=== PATIENT | female | born 1975 | race Caucasian/White ===

== ENCOUNTER 2016-07-03 03:05 | Observation (INO) | payer MEDICARE, MEDICAID ==
[~2016-07-03] VITALS: Ht 162.6 cm; Wt 82.8 kg
[~2016-07-03 03:05] MED LIST: AMBIEN10 MG PO; NEURONTIN 300300 MG PO; PROZAC20 MG PO; ZITHROMAX250 MG PO
[2016-07-03 04:13] LABS: BASOPHILS 0.2 % (0.0-2.0); EOSINOPHILS 0.8 % (0-7); HEMATOCRIT 41.3 % (36.0-48.0); IMMATURE GRANULOCYTES 0.4 % (0-5); LYMPHOCYTES 33.4 % (15-50); MCH 31.1 pg (26.0-34.0); MCHC 33.9 g/dL (31.0-37.0); MCV 91.8 fL (80.0-100.0); MEAN PLATELET VOLUME 9.3 fL (7.4-10.4); MONOCYTES 6.7 % (2-11); NEUTROPHILS 58.5 % (40-80); PLATELET COUNT 289 10x3/uL (130-400); WBC 11.2 10x3/uL (4.8-10.8)
[2016-07-03 04:26] LABS: ALBUMIN 3.2 g/dL (3.4-5.0); ANION GAP 14.6 mmol/L (8-16); BILIRUBIN - TOTAL 0.22 mg/dL (0.2-1.3); CALCIUM 9.4 mg/dL (8.5-10.1); CARBON DIOXIDE 25.3 mmol/L (21.0-32.0); POTASSIUM - SERUM 3.9 mmol/L (3.5-5.1); PROTEIN - SERUM 7.2 g/dL (6.4-8.2)
[2016-07-03 06:45] LABS: APPEARANCE CLEAR (CLEAR); BILIRUBIN NEGATIVE (NEGATIVE); COLOR STRAW (YELLOW); GLUCOSE NEGATIVE (NEGATIVE); KETONE NEGATIVE (NEGATIVE); LEUKOCYTE ESTERASE NEGATIVE (NEGATIVE); NITRITE NEGATIVE (NEGATIVE); PROTEIN NEGATIVE (NEGATIVE); SPECIFIC GRAVITY 1.015 (1.005-1.020); UROBILINOGEN NORMAL (NORMAL)
[2016-07-03 06:46] LABS: BACTERIA MANY /hpf (NONE SEEN); EPITHELIAL CELLS NSEEN /hpf (0-5); RED CELLS - URINE 0-5 /hpf (0-5); WHITE CELLS - URINE 0-5 /hpf (0-5)
--- NOTE | 2016-07-03 07:55 | NUR ---
RECEIVED PT FROM ER VIA WHEELCHAIR. NO OTHER NEEDS AT THIS TIME. WILL CONTINUE TO [facility].
[2016-07-03 08:00] VITALS: BP 127/78
[2016-07-03 10:25] VITALS: BP 127/78; BMI 27.5
--- NOTE | 2016-07-03 10:35 | NUR ---
ASSESSMENT DONE PER FLOWSHEET. NO OTHER NEEDS AT THIS TIME. WILL CONTINUE TO MONITOR.
[2016-07-03 12:00] VITALS: BP 106/76
[2016-07-03 15:55] VITALS: BP 106/64
[2016-07-03] MEDS ORDERED: CYMBALTA30 MG PO (18:36)
[2016-07-03] MEDS ORDERED: CATAPRES0.1 MG PO (18:37)
--- NOTE | 2016-07-03 19:34 | NUR ---
NUBAIN 10 MG AND ZOFRAN 4 MG GIVEN FOR C/O PAIN AND NAUSEA. IV TO RIGHT AC NOT CONNECTED TO IV PUMP, HOOKED UP IV TUBING TO PUMP AND SET INFUSION AT 125 PER ORDERS, IV SITE CLEAN AND DRY, NO OTHER NEEDS AT THIS TIME, BED LOW, CL IN REACH.
[2016-07-03 20:02] VITALS: BP 113/77
[2016-07-04] VITALS: BP 110/77
[2016-07-04 04:19] VITALS: BP 129/88
--- NOTE | 2016-07-04 04:19 | NUR ---
FUNERAL HOME LOCATION MANAGER AT BEDSIDE TO OBTAIN VITALS, CALL LIGHT IN REACH. WILL CONTINUE WITH PLAN OF CARE.
[2016-07-04 06:05] LABS: BASOPHILS 0.2 % (0.0-2.0); EOSINOPHILS 0.7 % (0-7); HEMATOCRIT 42.2 % (36.0-48.0); IMMATURE GRANULOCYTES 0.3 % (0-5); LYMPHOCYTES 24.2 % (15-50); MCH 30.8 pg (26.0-34.0); MCHC 33.2 g/dL (31.0-37.0); MCV 92.7 fL (80.0-100.0); MEAN PLATELET VOLUME 9.4 fL (7.4-10.4); MONOCYTES 7.3 % (2-11); NEUTROPHILS 67.3 % (40-80); PLATELET COUNT 234 10x3/uL (130-400); RBC 4.55 10x6/uL (4.00-5.40); RDW 14.1 % (11.5-14.5); WBC 9.1 10x3/uL (4.8-10.8)
[2016-07-04 06:29] LABS: ALBUMIN 3.2 g/dL (3.4-5.0); BILIRUBIN - TOTAL 0.2 mg/dL (0.2-1.3); CALCIUM 8.8 mg/dL (8.5-10.1); CARBON DIOXIDE 29.8 mmol/L (21.0-32.0); POTASSIUM - SERUM 3.8 mmol/L (3.5-5.1)
--- NOTE | 2016-07-04 07:55 | NUR ---
0645-PATIENT AM ROUNDING IS MADE. RATES PAIN 8/, NUBAIN WAS GIVEN EARILER. RIGHT AC SEEN WITH NS INFUSING AT 100 CC/HR WITOUT PROBLEMS. ON ROOM AIR. WILL CONTINUE TO MONITOR.
[2016-07-04 07:59] VITALS: BP 133/82
--- NOTE | 2016-07-04 09:53 | NUR ---
IV RESITED TO LEFT HAND PER YOUNG, VASCULAR ACCESS NURSE. SALINE LOCK TO RIGHT AC REMOVED WITH CATH TIP INTACT.
[2016-07-04 12:00] VITALS: BP 118/74
--- NOTE | 2016-07-04 12:02 | NUR ---
RATIONALE FOR SCD'S EXPLAINED. REFUSED SCD'S
[2016-07-04 12:43] VITALS: Ht 162.6 cm; Wt 82.8 kg
--- NOTE | 2016-07-04 13:19 | NUR ---
1312-CALLED DR PERRY OFFICE PATIENT REPORTS DIANE IS NOT HELPING MUCH. DR PERRY SAID THAT "DON'T SAY ANYTHING TO HERE BUT I RECEIVED A 3 PAGE HX OF NARCOTICS FROM DIFFERENT PROVIDERS FROM MEDICAID ON HER". HE TOLD ME TO TELL HER NOT AT THIS TIME WILL HE SWITCH HER NARCOTICS UNTIL GI SEE'S THE PATIENT. THIS IS PASSED TO THE PATIENT REGARDING HAVING TO BE SEEN BY GI, NOT THE OTHER. PATIENT REPLIES "THANK'S" AND IS ON HER PHONE TEXTING. REPORTS TO HAVING A BM A FEW MINUTES AGO.
--- NOTE | 2016-07-04 14:50 | NUR ---
PATIENT REQUESTING CUP OF LARGE ICE AND CHOCOLATE ICE BREAM, GIVEN.
[2016-07-04 16:00] VITALS: BP 114/70
--- NOTE | 2016-07-04 16:56 | NUR ---
PATIENT REQUESTING BENADRYL AND ZOFRAN, GIVEN. REFUSED SUPPER TRAY.
--- NOTE | 2016-07-04 18:21 | NUR ---
RESTING QUIETLY WITH EYES CLOSED, RESP ARE EVEN AND APPEAR NON LABORED. WILL CONTINUE TO MONITOR.
--- NOTE | 2016-07-04 18:54 | NUR ---
COMPLAINTS OF PAIN TO ABDOMINAL AREA 03/25 BUT LAUGHING WITH TWO FEMALE VISTORS. NUBAIN 10 MG GIVEN PAST DILUTION WITH NS, SLOW IVP GIVEN. WILL CONTINUE TO MONITOR.
[2016-07-04 20:56] VITALS: BP 134/94
[2016-07-05 00:36] VITALS: BP 147/94
[2016-07-05 04:57] VITALS: BP 109/74
[2016-07-05 05:00] LABS: BASOPHILS 0.2 % (0.0-2.0); HEMATOCRIT 38.8 % (36.0-48.0); HEMOGLOBIN 12.6 g/dL (12-16); IMMATURE GRANULOCYTES 0.2 % (0-5); LYMPHOCYTES 30.4 % (15-50); MCH 30.6 pg (26.0-34.0); MCHC 32.5 g/dL (31.0-37.0); MCV 94.2 fL (80.0-100.0); MEAN PLATELET VOLUME 9.2 fL (7.4-10.4); MONOCYTES 9.5 % (2-11); NEUTROPHILS 58.7 % (40-80); PLATELET COUNT 241 10x3/uL (130-400); RBC 4.12 10x6/uL (4.00-5.40); RDW 14.2 % (11.5-14.5); WBC 8.3 10x3/uL (4.8-10.8)
[2016-07-05 05:41] LABS: ANION GAP 11.3 mmol/L (8-16); BILIRUBIN - TOTAL 0.27 mg/dL (0.2-1.3); CALCIUM 9.2 mg/dL (8.5-10.1); CARBON DIOXIDE 28.6 mmol/L (21.0-32.0); POTASSIUM - SERUM 3.9 mmol/L (3.5-5.1); PROTEIN - SERUM 6.5 g/dL (6.4-8.2)
--- NOTE | 2016-07-05 07:15 | NUR ---
RECIEVED RPEORT ON PATIENT, PATIENT IS LAERT AND ORIENTED AT THIS TIME. PATIENT HAS A L HAND IV WITH NS INFUSING AT 100ML/HR. PATIENT IS ON ROOM AIR AT THIS TIME, NAD NOTED. CHEST RISES AND FALLS EQUALLY. PATIENT IS REQUESTING TO HAVE PAIN MEDICATION. NOT TIME YET, WILL GIVE WHEN TIME. PATIENT STATES UNDERSTANDING. DENIES ANY OTHER NEEDS. WILL CONT TO MONITOR PATIENT. CPOC
[2016-07-05 08:00] VITALS: BP 130/82
--- NOTE | 2016-07-05 08:30 | NUR ---
MORNING MEDICATION GIVEN, ASSESSMENT DONE. NUBAIN 10MG GIVEN IV FOR PAIN 8/10 IN ABDOMEN AND BENADRYL 25ML GIVEN IV FOR ITCHING. PATIENT DENIES ANY OTHER NEEDS AT THIS TIME. WILL CONT TO MONITOR PATIENT. CPOC
--- NOTE | 2016-07-05 11:00 | NUR ---
PATIENT RESTING AT THIS TIME, OPENS EYES TO VOICE. DENIES ANY NEEDS. WILL CONT TO MONITOR
[2016-07-05] MEDS ORDERED: LEVSIN/ANASP0.125 MG SL (11:14)
[2016-07-05 11:54] VITALS: BP 101/64
--- NOTE | 2016-07-05 12:23 | NUR ---
PATIENT IV DC WITH CATH TIP INTACT. DC PAPERWORK AND INSTRUCTIONS GIVEN, DENIES ANY FURTER QUESTIONS. PATIENT READY FOR DC
--- NOTE | 2016-07-05 12:50 | NUR ---
patient gone for dc
--- NOTE | 2016-08-14 10:17 | CN ---
PATIENT NAME:RAI FAIR MEDICAL RECORD: [id number] : 75 LOCATION:D.M2 D.2108 ADMIT DATE: 07/03/16 ACCOUNT: [id number] CONSULTING PHYSICIAN: YARELIS ALLEN MD REFERRING PHYSICIAN: GAMALIEL PERRY DO DATE OF CONSULTATION: 07/03/2016 CHIEF COMPLAINT: Abdominal pain. I personally reviewed her CT images. I personally reviewed the CT report. HISTORY OF PRESENT ILLNESS: The patient states that she is frequently constipated. She does not have a bowel obstruction. I have reviewed Dr. Perry's history and physical. She was admitted to the hospital with left-sided abdominal pain, worse in the left lower quadrant, but also some in the left upper quadrant. The patient states she is currently not constipated and has been having bowel movements. She has seen Dr. Souza in the past. The pain has worsened over the last few days. I think that she needs to undergo a colonoscopy. I will consult Dr. Souza. She does not appear to have an urgent or emergent general surgical issue. I will see her on a p.r.n. basis. Palpation aggravates. Nothing alleviates. The symptoms are in the left lower quadrant and radiates up into the left upper quadrant. It is a sharp pain. The patient is hungry. PAST MEDICAL AND SURGICAL HISTORY: Seizures, headaches, cholecystectomy, appendectomy, laparoscopic hysterectomy and back fusion. ALLERGIES: ASPIRIN. MEDICATIONS ON ADMISSION: Azithromycin, Neurontin, Ambien and Prozac. FAMILY HISTORY: Cardiovascular disease. SOCIAL HISTORY: Everyday smoker. I have advised her to quit smoking. REVIEW OF SYSTEMS: Negative for fatigue. No headache, no chest pain and no fever. Positive for abdominal pain. No hematuria. No tremor. No shortness of breath. PHYSICAL EXAMINATION: GENERAL: The patient does not appear acutely ill. She does not appear chronically ill. The entire physical examination was performed in the presence of a female nurse. VITAL SIGNS: Reviewed. HEAD: External ears appear normal. EYES: Extraocular movements are intact. NECK: Trachea is midline. CHEST: No intercostal retractions. PULMONARY: Nonlabored, no stridor. ABDOMEN: Tenderness with guarding in the left lower quadrant and left upper quadrant. No peritonitis with movement. EXTREMITIES: No peripheral cyanosis. INTEGUMENT: No rash, no ulcerations. PSYCHIATRIC: Anxious affect. NEUROLOGIC: Nonfocal, no lethargy. The patient answers questions CONSULT REPORT [id number] RAI FAIR appropriately, moves all extremities well. BACK: No thoracic kyphosis. LYMPHATICS: No lymphangitic streaking of the exposed extremities. IMPRESSION: Left lower quadrant and left upper quadrant abdominal pain. PLAN: Bowel prep. Consult Dr. Souza. I will see her on a p.r.n. basis. TRANSINT:[id number] Voice Confirmation ID: [id number] DOCUMENT ID: [id number] YARELIS ALLEN MD at 1017 CC: [id number] DICTATION DATE: 07/03/161910 TABULATING CLERK: 07/03/16 2350 DIS IN 07/05/16 [facility] [address] [place] [address]
== END 2016-07-05 13:39 | disposition home or self-care (01) ==
LOC: D.ER 03:05 → D.M2 07:39 → OBSVTIME 07:39 → D.M2 07-05 13:39
PROVIDERS: Emergency Medicine; ADMIT Family Medicine
DX: R10.32 Left lower quadrant pain (principal); R10.12 Left upper quadrant pain; K76.0 Fatty (change of) liver, not elsewhere classified; E66.9 Obesity, unspecified; R14.0 Abdominal distension (gaseous); K59.00 Constipation, unspecified; Z72.0 Tobacco use

== ENCOUNTER → 2016-11-05 19:45 | Outpatient (CLI) | payer MEDICARE ==
[2016-07-04 12:43] VITALS: BMI 29.2
[~2016-11-05 19:45] MED LIST changes: +CATAPRES0.1 MG PO; +CYMBALTA30 MG PO; +LEVSIN/ANASP0.125 MG SL
== END | disposition home or self-care (01) ==
LOC: D.SLEEP 19:45
DX: G47.33 Obstructive sleep apnea (adult) (pediatric) (principal); G47.00 Insomnia, unspecified

== ENCOUNTER 2016-12-12 23:34 | Emergency (ER) | payer MEDICARE ==
[2016-07-04 12:43] VITALS: BMI 29.2
[2016-12-13 01:35] LABS: BASOPHILS 0.1 % (0-2); EOSINOPHILS 1.1 % (0-7); HEMATOCRIT 39.2 % (36.0-48.0); HEMOGLOBIN 13.7 g/dL (12-16); IMMATURE GRANULOCYTES 0.2 % (0-5); LYMPHOCYTES 32.8 % (15-50); MCH 31.4 pg (26.0-34.0); MCHC 34.9 g/dL (31.0-37.0); MCV 89.7 fL (80.0-100.0); MEAN PLATELET VOLUME 9.6 fL (7.4-10.4); MONOCYTES 8.9 % (2-11); NEUTROPHILS 56.9 % (40-80); PLATELET COUNT 277 10x3/uL (130-400); RBC 4.37 10x6/uL (4.00-5.40); RDW 14.6 % (11.5-14.5); WBC 10.2 10x3/uL (4.8-10.8)
[2016-12-13 01:49] LABS: ALBUMIN 3.5 g/dL (3.4-5.0); ANION GAP 15.7 mmol/L (8-16); BILIRUBIN - TOTAL 0.3 mg/dL (0.2-1.3); CALCIUM 9.3 mg/dL (8.5-10.1); CREATININE - SERUM 1.2 mg/dL (0.6-1.3); POTASSIUM - SERUM 3.7 mmol/L (3.5-5.1); PROTEIN - SERUM 7.6 g/dL (6.4-8.2)
[2016-12-13 01:58] LABS: APTT 29.7 SECONDS (22.8-39.4); INR 0.99 (0.85-1.17); PROTIME 12.9 SECONDS (11.6-15.0)
[2016-12-13 02:21] LABS: HCG SERUM NEGATIVE (NEGATIVE)
== END 2016-12-13 03:05 | disposition home or self-care (01) ==
LOC: D.ER 23:34
PROVIDERS: Family Medicine
DX: R51 Headache (principal)

== ENCOUNTER 2017-02-05 17:50 | Emergency (ER) | payer MEDICARE ==
[2016-07-04 12:43] VITALS: BMI 29.2
== END 2017-02-05 20:20 | disposition home or self-care (01) ==
LOC: D.ER 17:50
DX: M54.5 Low back pain (principal); M54.16 Radiculopathy, lumbar region; F17.200 Nicotine dependence, unspecified, uncomplicated

== ENCOUNTER → 2017-02-13 15:09 | Outpatient (CLI) | payer MEDICARE ==
[2016-07-04 12:43] VITALS: BMI 29.2
== END | disposition home or self-care (01) ==
LOC: D.MRI 02-11 10:30
DX: M54.16 Radiculopathy, lumbar region (principal)

== ENCOUNTER 2017-05-28 21:12 | Emergency (ER) | payer MEDICARE ==
[2016-07-04 12:43] VITALS: BMI 29.2
== END 2017-05-28 23:05 | disposition home or self-care (01) ==
LOC: D.ER 21:12
DX: G89.18 Other acute postprocedural pain (principal)

== ENCOUNTER → 2017-07-25 18:21 | Outpatient (CLI) | payer MEDICARE ==
[2016-07-04 12:43] VITALS: BMI 29.2
== END | disposition home or self-care (01) ==
LOC: D.LABREF 18:21
DX: R31.9 Hematuria, unspecified (principal)

== ENCOUNTER → 2017-07-30 10:38 | Outpatient (CLI) | payer MEDICARE, MEDICAID ==
[2016-07-04 12:43] VITALS: BMI 29.2
== END | disposition home or self-care (01) ==
LOC: D.CT 10:38
DX: R31.21 Asymptomatic microscopic hematuria (principal)

== ENCOUNTER 2017-08-14 06:45 | Day surgery (SDC) | payer MEDICARE, MEDICAID ==
[2017-08-13 09:24] LABS: HEMATOCRIT 39.9 % (36.0-48.0); HEMOGLOBIN 14.1 g/dL (12-16); MCHC 35.3 g/dL (31.0-37.0); MCV 87.7 fL (80.0-100.0); MEAN PLATELET VOLUME 9.3 fL (7.4-10.4); RBC 4.55 10x6/uL (4.00-5.40); RDW 14.2 % (11.5-14.5); WBC 7.7 10x3/uL (4.8-10.8)
--- NOTE | ~2017-08-14 | OP ---
PATIENT NAME: RAI FAIR MEDICAL RECORD: [id number] :75 LOCATION:D.OPS ADMISSION DATE: SURGEON: BALJIT COBIAN MD DATE OF OPERATION: 08/14/2017 SURGEON: Baljit Cobian MD ANESTHESIA: MAC by Randy Muñoz CRNA PREOPERATIVE DIAGNOSES: Microscopic hematuria, urethral stricture. POSTOPERATIVE DIAGNOSES: Microscopic hematuria, urethral stricture, small papillary tumors on the bladder were noted. PROCEDURES: Cystoscopy, bladder biopsy, urethral dilation to 28-Mongolian, intravesical Rimso instillation. BLOOD LOSS: None. CLINICAL HISTORY: This is a 42-year-old female who is complaining of microscopic hematuria. This was noted in June of 2017. She is status post hysterectomy with bilateral salpingo-oophorectomy in 2006 for painful menses and endometriosis. She has trouble voiding and there was a slow urinary flow. There was no stress incontinence. She also has suprapubic pain when voiding as well as dyspareunia with vaginal penetration. She is a smoker of half a pack per day since age 16. Urine was sent for cytology. She also has a CT scan of abdomen and pelvis scheduled. She comes today for cystoscopy. We will perform urethral stricture dilation because of history of slow urinary flow. Also, bladder inflammation is found. Given her symptoms of suprapubic pain and dyspareunia, we will also treat with intravesical Rimso. SHE IS ALLERGIC TO ASPIRIN. She was given Ancef 1 gram IV on-call to the OR. DESCRIPTION OF PROCEDURE: The patient was given IV sedation. She was placed in the dorsal lithotomy position and prepped and draped. A 17-Mongolian cystoscope was used for visualization initially. There was bleeding from the urethra, which was tight and already dilated by the 17-Mongolian scope. Going into the bladder, there were single ureteral orifices on each side. There was quite prominent vascularity with glomerulations. On the dome of the bladder, multiple small papillary masses of about 1-2 mm in size were noted. I was uncertain if these were inflammatory polyps or actual bladder cancer. Therefore, we switched to the 21-Mongolian cystoscope, and using a rigid biopsy forceps, 3 of these small papillary masses were biopsied and sent to pathology in formalin. The biopsy sites were cauterized using a Bugbee electrode. The bladder was then emptied. We then dilated the urethra to 28-Mongolian using female sounds. The bladder then had Rimso instilled into it. A red rubber catheter was placed into the bladder and the bladder was fully drained. A 50 mL of Rimso-50 solution was instilled into the bladder. The catheter was then removed, leaving the solution in the bladder. The patient will hold the medication for a period of 15 minutes and then void it out. I will see her in followup next week to go over the pathology results and possibly give her the second treatment of Rimso. TRANSINT:[id number] Voice Confirmation ID: [id number] DOCUMENT ID: [id number] OPERATIVE REPORT [id number] RAI FAIR ROBERT S MD at 1315 CC: [id number] DICTATION DATE: 08/14/17 1021 SENIOUR INSIGHT MANAGER: 08/14/17 1151 [facility] [address] [place] [address]
[~2017-08-14 06:45] MED LIST changes: +DEPO-ESTRADIOL INJ; +ELAVIL25 MG PO; +ENDOCET 10-3251 TAB PO; +NUCYNTA ER100 MG PO; +OMEPRAZOLE40 MG PO; +VALIUM5 MG PO; +ZANAFLEX4 MG PO
[2017-08-14 07:21] VITALS: BP 103/69; BMI 30.8
== END 2017-08-14 12:00 | disposition home or self-care (01) ==
LOC: D.OPS 06:45 → D.PAN 08:45 → D.OPS 09:45
PROVIDERS: Anesthesiology
DX: R31.21 Asymptomatic microscopic hematuria (principal); N30.10 Interstitial cystitis (chronic) without hematuria; N35.9 Urethral stricture, unspecified; F17.200 Nicotine dependence, unspecified, uncomplicated; K21.9 Gastro-esophageal reflux disease without esophagitis; Z01.812 Encounter for preprocedural laboratory examination

== ENCOUNTER → 2017-09-10 17:31 | Outpatient (CLI) | payer MEDICARE, MEDICAID ==
[2017-08-14 07:21] VITALS: BMI 30.8
[~2017-09-10 17:31] MED LIST changes: +LEVAQUIN500 MG PO
== END | disposition home or self-care (01) ==
LOC: D.LABREF 17:31
DX: N39.0 Urinary tract infection, site not specified (principal)

== ENCOUNTER 2017-10-31 10:55 | Observation (INO) | payer MEDICARE, MEDICAID ==
[~2017-10-31] VITALS: Ht 162.6 cm; Wt 77.3 kg
--- NOTE | ~2017-10-31 | DS ---
PATIENT:RAI FAIR :75 MEDICAL RECORD: [id number] DISCHARGE SUMMARY ADMISSION DATE: 10/31/17 DISCHARGE DATE: 11/01/17 DATE OF ADMISSION: 10/31/2017 DATE OF DISCHARGE: 11/01/2017 ADMISSION DIAGNOSES: Hematuria, abdominal pain, UTI. DISCHARGE DIAGNOSES: Hematuria; abdominal pain; UTI questionable, cultures pending. PROCEDURES: CT of abdomen and pelvis stone protocol; no significant abnormalities noted. No acute changes. CONSULTS: Baljit Milan M.D., urology. HOSPITAL COURSE: The patient was admitted from the clinic by Dr. Rosas with abdominal pain. She has history of interstitial cystitis. She had hematuria in the clinic, also concern for possible stone. CT of abdomen and pelvis stone protocol again was negative. Cleared for discharge by Dr. Milan if studies normal. She has remained afebrile. She was started empirically on IV Levaquin. She had moderate bacteria. Urine culture negative to date. We will continue to cover with p.o. Levaquin with the patient to follow up with Dr. Rosas next week and Dr. Milan as scheduled for her interstitial cystitis. MEDS: Per med rec. FOLLOWUP: The patient was discharged in improved condition. LABORATORY DATA: CBC on discharge; white count 6.7, hemoglobin 12.4, hematocrit 36.1. PHYSICAL EXAMINATION: VITAL SIGNS: Temperature 98.1, blood pressure 98/63, heart rate 85, respirations 18, O2 sat is 95%. GENERAL: Alert and oriented. No present distress. HEART: Regular. LUNGS: Clear. ABDOMEN: Soft. EXTREMITIES: Present times 4. TRANSINT:[id number] Voice Confirmation ID: [id number] DOCUMENT ID: [id number] BALJIT LAYTON DO at 1306 CC: [id number] DICTATION DATE: 11/01/17 1256 SHREDDING MACHINE KNIFE CHANGER: 11/02/17 1232 DIS IN 11/01/17 [id number] [place] [address]
[~2017-10-31 10:55] MED LIST changes: -LEVAQUIN500 MG PO
[2017-10-31 11:58] VITALS: BP 110/73; BMI 29.2
[2017-10-31 12:17] LABS: ALBUMIN 3.1 g/dL (3.4-5.0); ANION GAP 12.4 mmol/L (8-16); BILIRUBIN - TOTAL 0.3 mg/dL (0.2-1.3); CALCIUM 8.6 mg/dL (8.5-10.1); CARBON DIOXIDE 26.2 mmol/L (21.0-32.0); POTASSIUM - SERUM 3.6 mmol/L (3.5-5.1); PROTEIN - SERUM 7.3 g/dL (6.4-8.2)
[2017-10-31 12:31] LABS: BASOPHILS 0.2 % (0-2); EOSINOPHILS 0.9 % (0-7); HEMATOCRIT 39.5 % (36.0-48.0); HEMOGLOBIN 13.9 g/dL (12-16); IMMATURE GRANULOCYTES 0.3 % (0-5); MCHC 35.2 g/dL (31.0-37.0); MEAN PLATELET VOLUME 9.5 fL (7.4-10.4); MONOCYTES 7.3 % (2-11); NEUTROPHILS 64.3 % (40-80); PLATELET COUNT 247 10x3/uL (130-400); RBC 4.49 10x6/uL (4.00-5.40); RDW 14.1 % (11.5-14.5); WBC 10.3 10x3/uL (4.8-10.8)
[2017-10-31 12:57] VITALS: Ht 162.6 cm; Wt 77.3 kg
[2017-10-31 15:51] VITALS: BP 104/68
[2017-10-31 18:05] LABS: APPEARANCE CLEAR (CLEAR); BILIRUBIN NEGATIVE (NEGATIVE); COLOR YELLOW (YELLOW); GLUCOSE NEGATIVE (NEGATIVE); KETONE NEGATIVE (NEGATIVE); NITRITE NEGATIVE (NEGATIVE); PROTEIN NEGATIVE (NEGATIVE); UROBILINOGEN NORMAL (NORMAL)
[2017-10-31 18:06] LABS: EPITHELIAL CELLS 0-5 /hpf (0-5); RED CELLS - URINE OCC /hpf (0-5)
[2017-10-31 18:07] LABS: BACTERIA MODERATE /hpf (NONE SEEN)
[2017-11-01 00:38] VITALS: BP 93/57
[2017-11-01 04:00] VITALS: BP 101/57
[2017-11-01 05:31] LABS: BASOPHILS 0.1 % (0-2); EOSINOPHILS 1.6 % (0-7); HEMATOCRIT 36.1 % (36.0-48.0); HEMOGLOBIN 12.4 g/dL (12-16); IMMATURE GRANULOCYTES 0.1 % (0-5); LYMPHOCYTES 41.7 % (15-50); MCH 30.6 pg (26.0-34.0); MCHC 34.3 g/dL (31.0-37.0); MCV 89.1 fL (80.0-100.0); MEAN PLATELET VOLUME 9.3 fL (7.4-10.4); MONOCYTES 9.4 % (2-11); NEUTROPHILS 47.1 % (40-80); PLATELET COUNT 201 10x3/uL (130-400); RBC 4.05 10x6/uL (4.00-5.40); RDW 13.9 % (11.5-14.5)
[2017-11-01 06:02] LABS: WBC 6.7 10x3/uL (4.8-10.8)
[2017-11-01 06:12] LABS: ALBUMIN 2.6 g/dL (3.4-5.0); ANION GAP 11.3 mmol/L (8-16); BILIRUBIN - TOTAL 0.37 mg/dL (0.2-1.3); CALCIUM 8.3 mg/dL (8.5-10.1); CARBON DIOXIDE 26.7 mmol/L (21.0-32.0); CREATININE - SERUM 0.9 mg/dL (0.6-1.3); PROTEIN - SERUM 6.2 g/dL (6.4-8.2)
[2017-11-01 08:04] VITALS: BP 88/46
[2017-11-01 11:22] VITALS: BP 98/63
[2017-11-01] MEDS ORDERED: LEVAQUIN500 MG PO (12:59)
== END 2017-11-01 14:11 | disposition home or self-care (01) ==
LOC: D.M2 10:55 → OBSVTIME 10:55 → UNDOADMIN 10:55 → D.M2 11-01 14:11 → EDSTATUS 12-25 13:19
PROVIDERS: Family Medicine
DX: N30.11 Interstitial cystitis (chronic) with hematuria (principal); K21.9 Gastro-esophageal reflux disease without esophagitis; Z72.0 Tobacco use

== ENCOUNTER 2018-01-19 13:42 | Emergency (ER) | payer MEDICARE, MEDICAID ==
[~2018-01-19] VITALS: Ht 162.6 cm; Wt 77.3 kg
[~2018-01-19 13:42] MED LIST changes: +LEVAQUIN500 MG PO
[2018-01-19 14:12] VITALS: Ht 162.6 cm; Wt 77.3 kg
[2018-01-19 14:30] LABS: BASOPHILS 0.1 % (0-2); HEMATOCRIT 40.5 % (36.0-48.0); HEMOGLOBIN 14.2 g/dL (12-16); IMMATURE GRANULOCYTES 0.2 % (0-5); LYMPHOCYTES 32.6 % (15-50); MCH 30.4 pg (26.0-34.0); MCHC 35.1 g/dL (31.0-37.0); MCV 86.7 fL (80.0-100.0); MEAN PLATELET VOLUME 9.4 fL (7.4-10.4); MONOCYTES 8.3 % (2-11); NEUTROPHILS 56.8 % (40-80); PLATELET COUNT 217 10x3/uL (130-400); RBC 4.67 10x6/uL (4.00-5.40); RDW 13.9 % (11.5-14.5); WBC 9.1 10x3/uL (4.8-10.8)
[2018-01-19 14:43] LABS: ALBUMIN 3.5 g/dL (3.4-5.0); ANION GAP 14.3 mmol/L (8-16); BILIRUBIN - TOTAL 0.33 mg/dL (0.2-1.3); CALCIUM 8.9 mg/dL (8.5-10.1); CARBON DIOXIDE 26.3 mmol/L (21.0-32.0); CREATININE - SERUM 0.9 mg/dL (0.6-1.3); POTASSIUM - SERUM 3.6 mmol/L (3.5-5.1); PROTEIN - SERUM 7.6 g/dL (6.4-8.2)
[2018-01-19 16:03] LABS: APPEARANCE HAZY (CLEAR); COLOR DY (YELLOW)
[2018-01-19 16:04] LABS: BILIRUBIN NEGATIVE (NEGATIVE); GLUCOSE NEGATIVE (NEGATIVE); KETONE NEGATIVE (NEGATIVE); NITRITE NEGATIVE (NEGATIVE); PROTEIN NEGATIVE (NEGATIVE); UROBILINOGEN NORMAL (NORMAL)
[2018-01-19] MEDS ORDERED: KRISTALOSE20 G/PKT PO (17:16)
[2018-01-19 17:39] VITALS: BP 110/72
[2018-02-25] MEDS ORDERED: NUCYNTA ER150 MG PO (14:47)
== END 2018-01-19 17:40 | disposition home or self-care (01) ==
LOC: D.ER 13:42
PROVIDERS: Family Medicine
DX: R10.9 Unspecified abdominal pain (principal); K59.00 Constipation, unspecified; F17.200 Nicotine dependence, unspecified, uncomplicated

== ENCOUNTER → 2018-01-28 20:48 | Outpatient (CLI) | payer MEDICARE, MEDICAID ==
[2018-01-19 14:12] VITALS: BMI 29.2
[~2018-01-28 20:48] MED LIST changes: +KRISTALOSE20 G/PKT PO; +NUCYNTA ER150 MG PO
[2018-01-28 21:58] LABS: APPEARANCE CLEAR (CLEAR); BILIRUBIN NEGATIVE (NEGATIVE); COLOR YELLOW (YELLOW); GLUCOSE NEGATIVE (NEGATIVE); KETONE NEGATIVE (NEGATIVE); NITRITE NEGATIVE (NEGATIVE); PROTEIN NEGATIVE (NEGATIVE); UROBILINOGEN NORMAL (NORMAL)
[2018-01-28 22:04] LABS: RED CELLS - URINE 0-5 /hpf (0-5); WHITE CELLS - URINE 0-5 /hpf (0-5)
[2018-01-28 22:05] LABS: BACTERIA MODERATE /hpf (NONE SEEN); EPITHELIAL CELLS 0-5 /hpf (0-5)
== END | disposition home or self-care (01) ==
LOC: D.LABREF 20:48
PROVIDERS: Urology
DX: R31.9 Hematuria, unspecified (principal); N39.0 Urinary tract infection, site not specified

== ENCOUNTER → 2018-02-04 18:42 | Outpatient (CLI) | payer MEDICARE, MEDICAID ==
[2018-01-19 14:12] VITALS: BMI 29.2
== END | disposition home or self-care (01) ==
LOC: D.LABREF 18:42
DX: R31.9 Hematuria, unspecified (principal)

== ENCOUNTER 2018-02-26 05:46 | Day surgery (SDC) | payer MEDICARE, MEDICAID ==
[~2018-02-26] VITALS: Ht 162.6 cm; Wt 76.2 kg
--- NOTE | ~2018-02-26 | OP ---
PATIENT NAME: RAI FAIR MEDICAL RECORD: [id number] :75 LOCATION:D.OPS ADMISSION DATE: SURGEON: BALJIT COBIAN MD DATE OF OPERATION: 02/26/2018 SURGEON: Baljit Cobian MD ANESTHESIA: TIVA by Trevin Muñoz CRNA DIAGNOSIS: Interstitial cystitis. PROCEDURES: Cystoscopy, hydrodistention with 1.5 liters of normal saline times 5 minutes, and intravesical Rimso-50 instillation. FINDINGS: No bladder tumors. Diffuse bladder inflammation. BLOOD LOSS: None. CLINICAL HISTORY: This is a 42-year-old female who has a history of interstitial cystitis. We treated her successfully with intravesical Rimso in the past. She has a flare-up again. She has severe pelvic pain. Urine cultures have shown no growth. We tried to give her a dose of Rimso in the office and she was unable to tolerate the pain from the medication in the bladder. She comes today to have hydrodistention done to help calm down the bladder pain, as well we will put intravesical Rimso while she is under anesthetic. SHE IS ALLERGIC TO ASPIRIN. She was given Ancef 1 gram IV bacon stringer to the OR. DESCRIPTION OF PROCEDURE: The patient was given IV sedation. She was then placed in the dorsal lithotomy position and prepped and draped. A 21-Divehi cystoscope was introduced. Diffuse bladder inflammation was seen. She has single ureteral orifice on each side. I then continued to let the inflow of saline carry on. Once 1.5 liters of saline had been run in and I stopped the water inflow. I then waited for 5 minutes. During this time, we could see the bleeding spontaneously from the multiple vessels in the bladder wall. These are what we call glomerulations. Once the 5 minutes was up, the bladder was fully emptied through the cystoscope sheath. The scope was then removed. A red rubber catheter was introduced into the bladder and 50 mL of Rimso-50 solution was instilled into the bladder. The catheter was then removed leaving the solution in the bladder. The patient will hold the solution for 15 minutes and then void it out. I will see her next week to have another Rimso treatment given to her. TRANSINT:[id number] Voice Confirmation ID: [id number] DOCUMENT ID: [id number] OPERATIVE REPORT [id number] FAIR,RAI BALJIT JOLLY MD at 1320 CC: [id number] DICTATION DATE: 02/26/18805 DANCE HALL HOST/HOSTESS: 02/26/18901 [facility] 02/26/18 [id number] [place] [address]
[2018-02-26 06:06] LABS: HEMATOCRIT 40.9 % (36.0-48.0); HEMOGLOBIN 14.7 g/dL (12-16); MCH 30.8 pg (26.0-34.0); MCHC 35.9 g/dL (31.0-37.0); MCV 85.7 fL (80.0-100.0); MEAN PLATELET VOLUME 9.6 fL (7.4-10.4); RBC 4.77 10x6/uL (4.00-5.40); RDW 13.6 % (11.5-14.5); WBC 8.8 10x3/uL (4.8-10.8)
[2018-02-26 06:54] VITALS: BP 102/59; Ht 162.6 cm; Wt 76.2 kg
== END 2018-02-26 09:18 | disposition home or self-care (01) ==
LOC: D.OPS 05:46 → D.PAN 07:30 → D.OPS 07:30
PROVIDERS: Anesthesiology
DX: N30.10 Interstitial cystitis (chronic) without hematuria (principal); Z72.0 Tobacco use

== ENCOUNTER → 2018-07-17 10:01 | Outpatient (CLI) | payer MEDICARE, MEDICAID ==
[2018-02-26 06:54] VITALS: BMI 28.9
[2018-07-17 11:46] LABS: ALBUMIN 3.4 g/dL (3.4-5.0); BILIRUBIN - DIRECT 0.08 mg/dL (0.00-0.30); BILIRUBIN - INDIRECT 0.13 mg/dL (0.00-1.00); BILIRUBIN - TOTAL 0.21 mg/dL (0.2-1.3); PROTEIN - SERUM 7.3 g/dL (6.4-8.2)
[2018-07-18 08:16] LABS: HEPATITIS C ANTIBODY <0.1 (0.0-0.9)
== END | disposition home or self-care (01) ==
LOC: D.LAB 10:01 → D.US 10:30
PROVIDERS: Internal Medicine Gastroenterology
DX: K76.0 Fatty (change of) liver, not elsewhere classified (principal)

== ENCOUNTER → 2018-08-05 12:58 | Outpatient (CLI) | payer MEDICARE, MEDICAID ==
[2018-02-26 06:54] VITALS: BMI 28.9
== END | disposition home or self-care (01) ==
LOC: D.MRI 12:58
DX: M25.561 Pain in right knee (principal)

== ENCOUNTER 2018-08-10 15:34 | Inpatient (IN) | payer MEDICARE, MEDICAID ==
[~2018-08-10] VITALS: Ht 162.6 cm; Wt 72.6 kg
[2018-08-10 16:11] VITALS: BP 100/78
[2018-08-10 18:54] LABS: BASOPHILS 0.2 % (0-2); EOSINOPHILS 0.8 % (0-7); HEMATOCRIT 42.7 % (36.0-48.0); HEMOGLOBIN 14.9 g/dL (12-16); IMMATURE GRANULOCYTES 0.4 % (0-5); LYMPHOCYTES 29.5 % (15-50); MCH 30.1 pg (26.0-34.0); MCHC 34.9 g/dL (31.0-37.0); MCV 86.3 fL (80.0-100.0); MEAN PLATELET VOLUME 9.6 fL (7.4-10.4); MONOCYTES 7.7 % (2-11); NEUTROPHILS 61.4 % (40-80); PLATELET COUNT 233 10x3/uL (130-400); RBC 4.95 10x6/uL (4.00-5.40); RDW 13.6 % (11.5-14.5); WBC 13.2 10x3/uL (4.8-10.8)
[2018-08-10 19:16] LABS: ALBUMIN 3.3 g/dL (3.4-5.0); ALKALINE PHOSPHATASE 78 U/L (46-116); ALT (SGPT) 9 U/L (10-68); BILIRUBIN - TOTAL 0.37 mg/dL (0.2-1.3); CALCIUM 8.8 mg/dL (8.5-10.1); CARBON DIOXIDE 26.5 mmol/L (21.0-32.0); CREATININE - SERUM 0.3 mg/dL (0.6-1.3); GLUCOSE 90 mg/dL (74-106); PROTEIN - SERUM 5.1 g/dL (6.4-8.2); UREA NITROGEN 11 mg/dL (7-18); eGFR NON AFRICAN AMERICAN > 90 mL/min (90-120)
--- NOTE | 2018-08-10 19:39 | NUR ---
PATIENT RESTING IN BED WITH NO S/S OF DISTRESS. ADMINISTERED MEDS PER ORDERS. PATIENT DENIES OTHER NEEDS AT THIS TIME. BED IN LOWEST POSITION AND CALL LIGHT WITHIN REACH. ENCOURAGED THE PATIENT TO CALL IF SHE HAS NEEDS. WILL CONTINUE TO MONITOR.
[2018-08-10 19:40] LABS: CALC OSMOLALITY 281 mosm/kg (275-300); CHLORIDE - SERUM 102 mmol/L (98-107); SODIUM 142 mmol/L (136-145)
[2018-08-10 20:00] VITALS: BP 114/78
[2018-08-11] VITALS: BP 83/56
[2018-08-11 01:07] LABS: APPEARANCE CLEAR (CLEAR); BILIRUBIN NEGATIVE (NEGATIVE); COLOR YELLOW (YELLOW); GLUCOSE NEGATIVE (NEGATIVE); KETONE NEGATIVE (NEGATIVE); NITRITE NEGATIVE (NEGATIVE); PROTEIN NEGATIVE (NEGATIVE); SPECIFIC GRAVITY 1.015 (1.005-1.020); UROBILINOGEN NORMAL (NORMAL)
[2018-08-11 04:30] VITALS: BP 84/55
[2018-08-11 07:28] LABS: BASOPHILS 0.2 % (0-2); EOSINOPHILS 1.2 % (0-7); HEMATOCRIT 38.8 % (36.0-48.0); HEMOGLOBIN 13.4 g/dL (12-16); IMMATURE GRANULOCYTES 0.5 % (0-5); LYMPHOCYTES 33.6 % (15-50); MCH 29.7 pg (26.0-34.0); MCHC 34.5 g/dL (31.0-37.0); MEAN PLATELET VOLUME 9.8 fL (7.4-10.4); MONOCYTES 8.2 % (2-11); NEUTROPHILS 56.3 % (40-80); PLATELET COUNT 227 10x3/uL (130-400); RBC 4.51 10x6/uL (4.00-5.40); RDW 13.6 % (11.5-14.5)
[2018-08-11 07:37] LABS: WBC 9.5 10x3/uL (4.8-10.8)
[2018-08-11 07:48] LABS: ALBUMIN 2.8 g/dL (3.4-5.0); ANION GAP 17.7 mmol/L (8-16); BILIRUBIN - TOTAL 0.38 mg/dL (0.2-1.3); CALCIUM 7.9 mg/dL (8.5-10.1); POTASSIUM - SERUM 3.7 mmol/L (3.5-5.1)
[2018-08-11 07:51] LABS: PROTEIN - SERUM 6.8 g/dL (6.4-8.2)
[2018-08-11 08:00] VITALS: BP 91/59
[2018-08-11 09:07] VITALS: Ht 162.6 cm; Wt 72.6 kg
[2018-08-11 12:08] VITALS: BP 88/45
[2018-08-11 15:26] VITALS: BP 105/68
--- NOTE | 2018-08-11 19:23 | NUR ---
PATIENT RESTING IN BED WITH GUEST AT BEDSIDE. PATIENT REQUESTED PAIN MEDS AND ZOFRAN. ADMINISTERED MEDS PER ORDERS. PATIENT DENIES OTHER NEEDS AT THIS TIME. BED IN LOWEST POSITION AND CALL LIGHT WITHIN REACH. ENCOURAGED THE PATIENT TO CALL IF SHE HAS NEEDS. WILL CONTINUE TO MONITOR.
[2018-08-11 20:31] VITALS: BP 102/68
[2018-08-12] VITALS (8 sets, daily range): BP systolic 80–129; BP diastolic 49–70
--- NOTE | 2018-08-12 07:00 | NUR ---
RESTING QUIETLY IN BED, ALERT, ORIENTED X 4, STATES ABD PAIN, INSTRUCTED THAT PAIN MED WOULD BE GIVEN WHEN THE PROPER TIME ARRIVED, CALL LIGHT AT HAND, INSTRUCTED TO CALL WITH NEEDS.
--- NOTE | 2018-08-12 19:30 | NUR ---
SITTING UP IN CHAIR AT BEDSIDE. PTS S.O. IN HER BED. ALERT AND ORIENTED X4. RESP EVEN AND NONLABORED. BBS CTA. ABD FIRM. BS PRESENT X4 QUADS. STATES SHE FEELS BLOATED. REPORTS DIARRHEA STOOL TODAY. RATES ABD PAIN 8 ON PAIN SCALE. JUST RECEIVED DILAUDID PRIOR TO SHIFT CHANGE. STATES SHE THINKS SHE HAS HEMORRHOIDS. NS @ 100 ML/HR INFUSING IN RT AC WITHOUT DIFF. AMBULATORY. NO EDEMA NOTED. NO DISTRESS. TALKATIVE WITH STAFF. CL IN REACH.
--- NOTE | 2018-08-12 21:15 | NUR ---
PT IN BED WITH EYES CLOSED. ARMBAND SCANNED AND MEDS SCANNED. PT SLEEPING AND VERY DROWSY. WILL HOLD ZANAFLEX, VALIUM AND ELAVIL FOR NOW. CL IN REACH.
--- NOTE | 2018-08-12 23:03 | NUR ---
STILL SLEEPING SOUNDLY. EYES CLOSED. RESP EVEN AND NONLABORED. CL IN REACH.
[2018-08-13 00:30] VITALS: BP 96/62
--- NOTE | 2018-08-13 00:30 | NUR ---
DESULFURIZER MACHINE AWAKENED PT FOR V/S AFTER CALLING HER NAME SEVERAL TIMES AND WITH PHYSICAL STIMULI. PT IMMEDIATELY WENT BACK TO SLEEP AFTER V/S TAKEN.
--- NOTE | 2018-08-13 02:51 | NUR ---
HAS BEEN SLEEPING ALL SHIFT. JUST NOW AWAKENED AND ASKED FOR PAIN MED AND STATES SHE DIDNT GET HER NIGHT TIME MEDS. EXPLAINED TO PT THAT STAFF HAD DIFFICULTY GETTING HER TO WAKE UP TO TAKE MEDS THEREFORE THEY WERE HELD. B/P IS ALSO 90'S/50'S. NURSING JUDGEMENT WAS THAT PT WAS TOO DROWSY FOR MEDS ALONG WITH DECREASED B/P.
--- NOTE | 2018-08-13 04:05 | NUR ---
PT REQUESTING PAIN MED. B/P IMPROVED. RATES PAIN IN ABD 10. MEDICATED WITH DILAUDID ORDERED. WILL CONT TO MONITOR. CL IN REACH.
[2018-08-13 04:30] VITALS: BP 109/71
[2018-08-13 06:43] LABS: BASOPHILS 0.1 % (0-2); EOSINOPHILS 1.8 % (0-7); HEMATOCRIT 38.1 % (36.0-48.0); HEMOGLOBIN 13.1 g/dL (12-16); IMMATURE GRANULOCYTES 0.5 % (0-5); LYMPHOCYTES 25.7 % (15-50); MCH 29.4 pg (26.0-34.0); MCHC 34.4 g/dL (31.0-37.0); MCV 85.6 fL (80.0-100.0); MEAN PLATELET VOLUME 9.5 fL (7.4-10.4); MONOCYTES 7.7 % (2-11); NEUTROPHILS 64.2 % (40-80); PLATELET COUNT 206 10x3/uL (130-400); RBC 4.45 10x6/uL (4.00-5.40); RDW 13.4 % (11.5-14.5); WBC 7.8 10x3/uL (4.8-10.8)
[2018-08-13 06:52] LABS: ANION GAP 13.8 mmol/L (8-16); CALCIUM 8.2 mg/dL (8.5-10.1); CARBON DIOXIDE 23.9 mmol/L (21.0-32.0); POTASSIUM - SERUM 3.7 mmol/L (3.5-5.1)
--- NOTE | 2018-08-13 07:25 | NUR ---
INITIAL ROUNDING ON THE PATIENT, CAREGIVERS INTRODUCED. PATIENT SITTING IN BEDSIDE CHAIR, HOLDING HER ABD, REPORTING PAIN. SHE STATES THE LAST DOSE OF PAIN MED AT 0400 DID NOT WORK. PATIENT INSTRUCTED ON TIMES NEXT DOSE CAN BE GIVEN.
--- NOTE | 2018-08-13 08:00 | NUR ---
DANCE MASTER REPORTS THE PATIENT IS REPORTING A 10/10 PAIN LEVEL'
--- NOTE | 2018-08-13 08:24 | NUR ---
THE PT IS AWAKE AND SITTING IN BEDSIDE CHAIR LOOKING ON HER CELL PHONE, NOT CRYING
--- NOTE | 2018-08-13 08:30 | NUR ---
WHEN THIS NURSE ENTERED THE ROOM, THE PATIENT WAS GOING THRU HER PERSONAL LARGE BAG AND SHE ZIPPED IT UP WHEN I ENTERED THE ROOM. THIS NURSE ASKED HER IF SHE HAD ANY OF HER HOME MEDICATIONS IN THE ROOM, SHE ANSWERED YES. I ASKED HER TO SHOW ME AND SHE REMOVED 4 BOTTLES FROM HER BAG, ONE BOTTLE WAS EMPTY. THE OTHER 3 WERE CLONODINE, LYRICA AND AMITRIPTYLINE. PATIENT INSTRUCTED ON THE SAFETY AND POLICE OF NOT KEEPING HER HOME MEDICATIONS WITH HER, AND LOCKING THEM IN THE PHARMACY. SHE AGREED TO HAVE THEM LOCKED UP.
[2018-08-13 10:11] VITALS: BP 99/73
--- NOTE | 2018-08-13 13:23 | NUR ---
Nutrition Follow Up: Pt stated that she attempted to eat breakfast this morning but began to have increased pain when eating. Pt refused to try lunch but did request red jello. Pt agreed to try Ensure Clear. RD encouraged pt to increase po intake as able. Diet: Regular PO Intake: 0% meal avg BM: 08/13/18 Labs reviewed Meds noted including Flagyl Rec continue current diet as tolerated. Will order Ensure Clear with meals. Will honor food preferences. RD following.
[2018-08-13 14:35] VITALS: BP 107/66
--- NOTE | 2018-08-13 15:14 | NUR ---
Per CMS protocol, restraint report logged into data base.
--- NOTE | 2018-08-13 17:04 | NUR ---
CALLED DR ARANA AFTER HOURS NUMBER, REPORTED THE CONSULT, DR ARANA RETURNED THE CALL AT 1706 AND WAS NOTIFIED OF THE CONSULT. HE STATED THAT HE WOULD SEE THE PATIENT TOMORROW
[2018-08-13 17:42] VITALS: BP 125/83
[2018-08-13 20:00] VITALS: BP 105/68
[2018-08-14] VITALS: BP 115/65; BP 117/75
--- NOTE | 2018-08-14 02:03 | NUR ---
PT PLACED CALL LIGHT ON AND WHEN WE ANSWERED SHE DID NOT ANSWER US AND WAS WAS HOLDING HER HANDS UP STIFFLY. SHE KEPT HER EYES CLOSED BUT SLOWLY STARTED ANSWERING OUR QUESTIONS WITH YES/NO OR NODS. EVEN ANSWERED YES WHEN ASKED IF SHE HAD SEIZURES. ABOUT 20-30 MINUTES LATER SHE WAS TALKING ON THE PHONE TO SOMEONE AND DID NOT APPEAR TO HAVE ANY PROBLEMS.
[2018-08-14 04:00] VITALS: BP 102/61
[2018-08-14 05:24] LABS: BASOPHILS 0.1 % (0-2); EOSINOPHILS 1.5 % (0-7); HEMATOCRIT 36.8 % (36.0-48.0); HEMOGLOBIN 12.7 g/dL (12-16); IMMATURE GRANULOCYTES 0.5 % (0-5); MCH 29.3 pg (26.0-34.0); MCHC 34.5 g/dL (31.0-37.0); MCV 84.8 fL (80.0-100.0); MEAN PLATELET VOLUME 9.3 fL (7.4-10.4); MONOCYTES 9.4 % (2-11); NEUTROPHILS 55.5 % (40-80); PLATELET COUNT 198 10x3/uL (130-400); RBC 4.34 10x6/uL (4.00-5.40); RDW 13.4 % (11.5-14.5); WBC 7.3 10x3/uL (4.8-10.8)
[2018-08-14 05:31] LABS: CARBON DIOXIDE 26.3 mmol/L (21.0-32.0); POTASSIUM - SERUM 3.3 mmol/L (3.5-5.1)
--- NOTE | 2018-08-14 07:10 | NUR ---
INITIAL ROUNDING ON THE PATIENT, SHE IS RESTING WITH EYES CLOSED, LIGHTS OFF. NO S/S OF SOB, DISTRESS, OR PAIN NOTED.
[2018-08-14 08:00] VITALS: BP 92/53
[2018-08-14 13:04] VITALS: BP 99/69
[2018-08-14 17:11] VITALS: BP 107/69
--- NOTE | 2018-08-14 18:16 | NUR ---
PAGED DR PARRA TO INQUIRE WHY THE IV DILAUDID WAS DISCONTINUED, PER PATIENT REQUEST
--- NOTE | 2018-08-14 18:52 | NUR ---
DR STOKES RETURNED THE CALL AND WAS NOTIFIED OF THE PATIENTS CONCERN OF THE IV DILAUDID BEING DISCONTINUED. DR STOKES STATED , THE ANSWER IS NO, SHE IS NOT RESTARTING THE DILAUDID
[2018-08-14 20:00] VITALS: BP 110/73
--- NOTE | 2018-08-15 03:52 | NUR ---
ASSESSED AT THE BEGINNING OF THE SHIFT, PT IS ALERT AND ORIENTED, ABLE TO VERBALIZE NEEDS. SHE HAS BEEN UPSET ABOUT THE CHANGE IN HER PAIN MEDS BY THE MD. SHE HAS TAKEN HER PAIN MEDS DURING THE NIGHT EVEN THOUGH SHE REFUSED THEM WHEN THEY WERE FIRST ORDERED. THERE HAVE BEEN NO PROBLEMS AND SHE HAS BEEN ASLEEP SEVERAL TIMES WHEN CHECKED ON.
[2018-08-15 04:00] VITALS: BP 109/61
--- NOTE | 2018-08-15 07:10 | NUR ---
PATIENT AND HER PARTNER ARE RESTING IN BED, WITH THE LIGHTS OFF. PATIENT REPORTING PAIN IN THE LOWER ABD, SHE WAS JUST GIVEN NORCO BY EARLY CHILDHOOD ASSOCIATE NURSE. IVF NS INFUSING AT 100 TO LEFT FA, ZOFRAN IV TURNED OFF. CALL LIGHT IN REACH.
[2018-08-15 07:28] LABS: BASOPHILS 0.1 % (0-2); EOSINOPHILS 1.1 % (0-7); HEMATOCRIT 38.9 % (36.0-48.0); HEMOGLOBIN 13.7 g/dL (12-16); IMMATURE GRANULOCYTES 0.4 % (0-5); LYMPHOCYTES 29.9 % (15-50); MCH 29.7 pg (26.0-34.0); MCHC 35.2 g/dL (31.0-37.0); MCV 84.4 fL (80.0-100.0); MEAN PLATELET VOLUME 9.3 fL (7.4-10.4); MONOCYTES 8.1 % (2-11); NEUTROPHILS 60.4 % (40-80); PLATELET COUNT 207 10x3/uL (130-400); RBC 4.61 10x6/uL (4.00-5.40); RDW 13.4 % (11.5-14.5); WBC 8.6 10x3/uL (4.8-10.8)
[2018-08-15 07:44] LABS: ANION GAP 13.4 mmol/L (8-16); CALCIUM 8.7 mg/dL (8.5-10.1); CARBON DIOXIDE 25.9 mmol/L (21.0-32.0)
[2018-08-15 07:51] LABS: POTASSIUM - SERUM 3.3 mmol/L (3.5-5.1)
[2018-08-15 07:58] VITALS: BP 118/74
[2018-08-15 13:34] VITALS: BP 107/74
[2018-08-15 16:00] VITALS: BP 109/69
--- NOTE | 2018-08-15 19:10 | NUR ---
PATIENT RESTING IN BED WITH NO S/S OF DISTRESS. REQUESTED PAIN MEDS WHEN DUE WITH NIGHT MEDS. PATIENT DENIES OTHER NEEDS AT THIS TIME. BED IN LOWEST POSITION AND CALL LIGHT WITHIN REACH. ENCOURAGED THE PATIENT TO CALL IF SHE HAS NEEDS. WILL CONTINUE TO MONITOR.
[2018-08-15 19:22] VITALS: BP 108/71
[2018-08-16] VITALS (8 sets, daily range): BP systolic 95–130; BP diastolic 55–86
--- NOTE | 2018-08-16 02:27 | NUR ---
PATIENT RESTING IN BED WITH EYES CLOSED AND NO S/S OF DISTRESS. BED IN LOWEST POSITION AND CALL LIGHT WITHIN REACH. WILL CONTINUE TO MONITOR.
[2018-08-16 06:51] LABS: BASOPHILS 0.1 % (0-2); EOSINOPHILS 0.8 % (0-7); HEMATOCRIT 37.7 % (36.0-48.0); HEMOGLOBIN 13.2 g/dL (12-16); IMMATURE GRANULOCYTES 0.4 % (0-5); LYMPHOCYTES 26.3 % (15-50); MCH 29.5 pg (26.0-34.0); MCV 84.2 fL (80.0-100.0); MEAN PLATELET VOLUME 9.6 fL (7.4-10.4); MONOCYTES 8.6 % (2-11); NEUTROPHILS 63.8 % (40-80); PLATELET COUNT 203 10x3/uL (130-400); RBC 4.48 10x6/uL (4.00-5.40); RDW 13.4 % (11.5-14.5); WBC 9.5 10x3/uL (4.8-10.8)
--- NOTE | 2018-08-16 07:10 | NUR ---
INITIAL ROUNDING. THE PATIENT AND HER PARTNER ARE BOTH RESTING IN THE BED WITH THE LIGHTS OFF. NO S/S OF SOB/DISTRESS NOTED. PATIENT ANTICIPATING EGD AT 0900, SHE IS REQUESTING TO HAVE HER IV SITE WRAPPED SO SHE CAN SHOWER. CONSENTS IN THE CHART AND SIGNED. PATIENT HAS BEEN NPO SINCE 0000
[2018-08-16 07:16] LABS: ANION GAP 11.8 mmol/L (8-16); CALCIUM 8.1 mg/dL (8.5-10.1); CARBON DIOXIDE 24.6 mmol/L (21.0-32.0); POTASSIUM - SERUM 3.4 mmol/L (3.5-5.1)
[2018-08-16] MEDS ORDERED: LEVAQUIN750 MG PO (09:59)
[2018-08-16] MEDS ORDERED: FLAGYL500 MG PO (10:00)
[2018-08-16] MEDS ORDERED: PROTONIX40 MG PO (10:00)
[2018-08-16] MEDS ORDERED: REGLAN5 MG PO (10:00)
--- NOTE | 2018-08-16 11:03 | NUR ---
REMOVED THE PATIENTS IV FROM LEFT FA, CATH TIP INTACT. VITAL SIGNS ARE STABLE. PATIENT WILL CALL A UBER WHEN READY TO GO HOME
--- NOTE | 2018-08-16 11:40 | NUR ---
CALLED AND SPOKE TO GARRICK IN THE PHARMACY AGAIN, REQUESTING THE ANTIBIOTIC THAT WAS DUE, AND THE PATIENT IS WAITING FOR BEFORE BEING DISCHARGED
--- NOTE | 2018-08-16 12:14 | NUR ---
PATIENTS PARTNER HERE TO PICK HER UP, THE PATIENT IS WAITING FOR D/C PAPERS. ANTIBIOTIC GIVEN AT THIS TIME
--- NOTE | 2018-08-16 12:58 | NUR ---
KITCHEN STAFF JUST NOTIFIED ME OF THE PATIENT NOT BEING IN THE ROOM. SHE HAS LEFT THE ROOM. SHE WAS NOT GIVEN DISCHARGE PAPERS TO SIGN.
--- NOTE | 2018-08-18 08:52 | MORECARE ---
CASE MANAGEMENT DISCHARGE SUMMARY PATIENT: RAI FAIR UNIT: [id number] ADM DATE: 08/10/18 AGE: 43 : 75 SEX: F ROOM/BED: D.1201 AUTHOR: MANUELITO CARPIO PHYSICIAN: REFERRING PHYSICIAN: GAMALIEL PERRY DO DATE OF SERVICE: 08/18/18 Discharge Plan Patient Name[facility] RAI FAIR [facility] [facility] 1975 Planned Disposition: Home Anticipated Discharge Date: 08/16/18 Discharge Date: 08/16/2018 Expected LOS: 6 Initial Reviewer: [email or web address] Initial Review Date: 08/18/2018 Generated: 08/18/18 9:52 am Patient Name: RAI FAIR Page [id number] at 0852 All edits/amendments must be made on the electronic document DICTATION DATE: 08/18/1852 DISK SANDER: AARON 08/18/18 0852 RPT#: [id number] DC DATE:08/16/18 STATUS: DIS IN [facility] [address] [place] [address] END OF REPORT
== END 2018-08-16 13:01 | disposition home or self-care (01) | DRG 392 ==
LOC: D.M3 15:34
PROVIDERS: Internal Medicine Gastroenterology; Internal Medicine Nephrology; ADMIT Family Medicine; ATTEND Family Medicine
PROC: 0DB68ZX Excision of Stomach, Via Natural or Artificial Opening Endoscopic, Diagnostic (ICD-10-PCS; 2018-08-16)
PROC: 0DB98ZX Excision of Duodenum, Via Natural or Artificial Opening Endoscopic, Diagnostic (ICD-10-PCS; principal; 2018-08-16 09:07)
DX: K52.9 Noninfective gastroenteritis and colitis, unspecified (principal); F17.213 Nicotine dependence, cigarettes, with withdrawal; E86.9 Volume depletion, unspecified; K21.9 Gastro-esophageal reflux disease without esophagitis; G40.909 Epilepsy, unspecified, not intractable, without status epilepticus; G43.909 Migraine, unspecified, not intractable, without status migrainosus; K29.00 Acute gastritis without bleeding

== ENCOUNTER 2019-09-02 12:42 | Emergency (ER) | payer MEDICARE, MEDICAID ==
[~2019-09-02] VITALS: Ht 162.6 cm; Wt 77.3 kg
[~2019-09-02 12:42] MED LIST changes: +FLAGYL500 MG PO; +LEVAQUIN750 MG PO; +PROTONIX40 MG PO; +REGLAN5 MG PO
[2019-09-02 12:56] VITALS: BP 132/89; Ht 162.6 cm; Wt 77.3 kg
[2019-09-02] MEDS ORDERED: AUGMENTIN 875-11 TAB PO (12:59)
[2019-09-02] MEDS ORDERED: VENTOLIN HFA [SP8 GM INH (13:00)
[2019-09-02] MEDS ORDERED: PREDNISONE20 MG PO (13:00)
[2019-09-02 14:15] LABS: BASOPHILS 0.2 % (0-2); EOSINOPHILS 0.5 % (0-7); HEMATOCRIT 38.8 % (36.0-48.0); HEMOGLOBIN 13.4 g/dL (12-16); IMMATURE GRANULOCYTES 0.6 % (0-5); LYMPHOCYTES 19.8 % (15-50); MCH 28.5 pg (26.0-34.0); MCHC 34.5 g/dL (31.0-37.0); MCV 82.6 fL (80.0-100.0); MEAN PLATELET VOLUME 9.1 fL (7.4-10.4); MONOCYTES 4.1 % (2-11); NEUTROPHILS 74.8 % (40-80); PLATELET COUNT 202 10x3/uL (130-400); RDW 13.3 % (11.5-14.5); WBC 9.4 10x3/uL (4.8-10.8)
[2019-09-02 14:23] LABS: CALC OSMOLALITY 281 mosm/kg (275-300); CALCIUM 9.3 mg/dL (8.5-10.1); CARBON DIOXIDE 24.2 mmol/L (21.0-32.0); CHLORIDE - SERUM 100 mmol/L (98-107); CREATININE - SERUM 1.2 mg/dL (0.6-1.3); GLUCOSE 247 mg/dL (74-106); POTASSIUM - SERUM 3.7 mmol/L (3.5-5.1); SODIUM 135 mmol/L (136-145); UREA NITROGEN 23 mg/dL (7-18); eGFR NON AFRICAN AMERICAN 52 mL/min (90-120)
[2019-09-02 14:38] LABS: ALBUMIN 3.9 g/dL (3.4-5.0); ALKALINE PHOSPHATASE 69 U/L (30-120); ALT (SGPT) 49 U/L (10-68); BILIRUBIN - TOTAL 0.35 mg/dL (0.2-1.3); CKMB 1.8 U/L (0.0-3.6); CREATINE KINASE 66 UL (21-215); PROTEIN - SERUM 8.7 g/dL (6.4-8.2); TROPONIN-I < 0.017 ng/mL (0.000-0.060)
[2019-09-02] MEDS ORDERED: LEVAQUIN750 MG PO (15:00)
== END 2019-09-02 15:41 | disposition home or self-care (01) ==
LOC: D.ER 12:42
PROVIDERS: Family Medicine
DX: J18.8 Other pneumonia, unspecified organism (principal); R06.02 Shortness of breath; R05 Cough

== ENCOUNTER → 2019-11-02 08:28 | Outpatient (CLI) | payer MEDICARE, MEDICAID ==
[2019-09-02 12:56] VITALS: BMI 29.2
[~2019-11-02 08:28] MED LIST changes: +AUGMENTIN 875-11 TAB PO; +PREDNISONE20 MG PO; +VENTOLIN HFA [SP8 GM INH
[2019-11-02 09:54] LABS: ALBUMIN 3.6 g/dL (3.4-5.0); BILIRUBIN - DIRECT 0.12 mg/dL (0.00-0.30); BILIRUBIN - INDIRECT 0.29 mg/dL (0.00-1.00); BILIRUBIN - TOTAL 0.41 mg/dL (0.2-1.3); PROTEIN - SERUM 7.5 g/dL (6.4-8.2)
== END | disposition home or self-care (01) ==
LOC: D.LAB 08:00 → D.US 08:30
PROVIDERS: ATTEND Internal Medicine Gastroenterology
DX: K76.0 Fatty (change of) liver, not elsewhere classified (principal); R11.0 Nausea; R10.13 Epigastric pain

== ENCOUNTER 2019-12-29 08:37 | Emergency (ER) | payer MEDICARE, MEDICAID ==
[~2019-12-29] VITALS: Ht 162.6 cm; Wt 81.8 kg
[2019-12-29 08:43] VITALS: Ht 162.6 cm; Wt 81.8 kg
[2019-12-29] MEDS ORDERED: LYRICA150 MG PO (08:45)
[2019-12-29] MEDS ORDERED: LIPITOR20 MG PO (08:46)
[2019-12-29] MEDS ORDERED: LINZESS290 MCG PO (08:46)
[2019-12-29] MEDS ORDERED: PERCOCET 10-321 EAC1 PO (08:46)
[2019-12-29] MEDS ORDERED: REGLAN5 MG PO (08:47)
[2019-12-29] MEDS ORDERED: ATARAX 25 MG TA25 MG PO (08:47)
[2019-12-29 09:18] LABS: HEMATOCRIT 37.8 % (36.0-48.0); HEMOGLOBIN 12.8 g/dL (12-16); LYMPHOCYTES 42.8 % (15-50); MCH 27.6 pg (26.0-34.0); MCHC 33.9 g/dL (31.0-37.0); MCV 81.5 fL (80.0-100.0); MEAN PLATELET VOLUME 8.4 fL (7.4-10.4); NEUTROPHILS 45.5 % (40-80); PLATELET COUNT 209 10x3/uL (130-400); RBC 4.64 10x6/uL (4.00-5.40); RDW 13.6 % (11.5-14.5)
[2019-12-29 09:30] LABS: CALC OSMOLALITY 277 mosm/kg (275-300); CALCIUM 8.8 mg/dL (8.5-10.1); CARBON DIOXIDE 26.2 mmol/L (21.0-32.0); CHLORIDE - SERUM 102 mmol/L (98-107); POTASSIUM - SERUM 4.1 mmol/L (3.5-5.1); SODIUM 136 mmol/L (136-145); UREA NITROGEN 15 mg/dL (7-18); eGFR NON AFRICAN AMERICAN 64 mL/min (90-120)
[2019-12-29 09:31] LABS: GLUCOSE 190 mg/dL (74-106)
[2019-12-29 09:45] LABS: ALBUMIN 3.7 g/dL (3.4-5.0); ALKALINE PHOSPHATASE 80 U/L (30-120); ALT (SGPT) 90 U/L (10-68); BILIRUBIN - TOTAL 0.35 mg/dL (0.2-1.3); CREATINE KINASE 69 UL (21-215); MAGNESIUM - SERUM 2.1 mg/dL (1.8-2.4); PROTEIN - SERUM 7.6 g/dL (6.4-8.2); THYROID STIMULATING HORMONE 2.96 uIU/mL (0.36-3.74)
[2019-12-29 09:46] LABS: TROPONIN-I < 0.017 ng/mL (0.000-0.060)
[2019-12-29 09:51] LABS: NITRITE POSITIVE (NEGATIVE); SPECIFIC GRAVITY 1.015 (1.005-1.020)
[2019-12-29 09:52] LABS: BILIRUBIN NEGATIVE (NEGATIVE); GLUCOSE 50 mg/dL (NEGATIVE); KETONE NEGATIVE (NEGATIVE); UROBILINOGEN NORMAL (NORMAL)
[2019-12-29 09:59] LABS: BACTERIA MANY /hpf (NEGATIVE); RED CELLS - URINE 0-5 /hpf (0-5); WHITE CELLS - URINE 0-5 /hpf (NEGATIVE)
[2019-12-29] MEDS ORDERED: METFORMIN HCL500 M1 PO (10:08)
[2019-12-29] MEDS ORDERED: MACROBID100 MG PO (10:08)
[2019-12-29 10:52] VITALS: BP 109/64
== END 2019-12-29 11:16 | disposition home or self-care (01) ==
LOC: D.ER 08:37
PROVIDERS: Emergency Medicine
DX: F07.81 Postconcussional syndrome (principal); N30.00 Acute cystitis without hematuria; R55 Syncope and collapse; K21.9 Gastro-esophageal reflux disease without esophagitis; E11.9 Type 2 diabetes mellitus without complications; R42 Dizziness and giddiness; R11.0 Nausea